=== PATIENT | female | born 1940 ===

== ENCOUNTER 2017-11-23 11:17 | Inpatient (IN) | payer OTHER ==
[~2017-11-23] VITALS: Ht 149.9 cm; Wt 68.0 kg
[2017-12-08] MEDS ORDERED: SYNTHROID50 MCG PO (12:56)
[2017-12-08] MEDS ORDERED: [UNRECOGNIZED DRUG - OTHER] PO (12:56)
[2017-12-08] MEDS ORDERED: HYDRALAZINE HCL25 MG PO (12:57)
[2017-12-08] MEDS ORDERED: ASPIR 8181 MG PO (12:57)
[2017-12-08] MEDS ORDERED: CRESTOR20 MG PO (12:57)
[2017-12-08] MEDS ORDERED: ZETIA10 MG PO (12:58)
[2017-12-08] MEDS ORDERED: CENTRUM ADULTS1 EACH PO (12:58)
[2017-12-08] MEDS ORDERED: CALTRATE 600+D1 EAC1 PO (12:58)
[2017-12-08] MEDS ORDERED: PROBIOTIC1 EAC1 PO (12:59)
[2017-12-08] MEDS ORDERED: OMEGA 3 1,0001 EACH PO (12:59)
[2017-12-08] MEDS ORDERED: OMEGA (12:59)
[2017-12-08] MEDS ORDERED: NEPHRONEX-SL T1 EACH PO (13:00)
[2017-12-15] MEDS ORDERED: TOPROL XL50 M1 PO (09:20)
[2017-12-15] MEDS ORDERED: OMEGA-31000 MG PO (09:21)
== END 2017-12-22 13:52 | disposition home or self-care (01) | DRG 330 ==
LOC: O/R 12-15 05:15 → SURG 12-15 05:15 → MEDI 12-15 10:43 → SURG 12-15 11:30
PROVIDERS: Colon & Rectal Surgery
PROC: 0TQB4ZZ Repair Bladder, Percutaneous Endoscopic Approach (ICD-10-PCS; 2017-12-15)
PROC: 0DU Gastrointestinal System, Supplement (ICD-10-PCS; 2017-12-15)
PROC: 0DJD8ZZ Inspection of Lower Intestinal Tract, Via Natural or Artificial Opening Endoscopic (ICD-10-PCS; 2017-12-15)
PROC: 4A033R1 Measurement of Arterial Saturation, Peripheral, Percutaneous Approach (ICD-10-PCS; 2017-12-15)
PROC: 4A12X4Z Monitoring of Cardiac Electrical Activity, External Approach (ICD-10-PCS; 2017-12-15)
PROC: 0DTN4ZZ Resection of Sigmoid Colon, Percutaneous Endoscopic Approach (ICD-10-PCS; principal; 2017-12-15 10:15)
PROC: 30233N1 Transfusion of Nonautologous Red Blood Cells into Peripheral Vein, Percutaneous Approach (ICD-10-PCS; 2017-12-16)
DX: K57.20 Diverticulitis of large intestine with perforation and abscess without bleeding (principal); N32.1 Vesicointestinal fistula; I11.9 Hypertensive heart disease without heart failure; E03.8 Other specified hypothyroidism; E78.00 Pure hypercholesterolemia, unspecified; G47.33 Obstructive sleep apnea (adult) (pediatric); D64.89 Other specified anemias